=== PATIENT | male | born 1960 | race African-American/Black ===

== ENCOUNTER 2017-09-11 08:13 | Emergency (ER) | payer SELFPAY ==
[~2017-09-11] VITALS: Ht 170.2 cm; Wt 85.5 kg
[2017-09-11 08:18] VITALS: Ht 170.2 cm; Wt 85.5 kg
[2017-09-11] MEDS ORDERED: ASPIRIN 325 MG TAB PO STA (08:33)
[2017-09-11 08:58] LABS: BASOPHILS % 1.1 % (0.0-2.0); EOSINOPHILS # 0.1 10^3/ul (0.0-0.5); EOSINOPHILS % 2.2 % (0.0-7.0); HEMATOCRIT 43.2 % (42.0-52.0); LYMPHOCYTES # 1.9 10^3/ul (0.8-2.9); LYMPHOCYTES % 51.7 % (15.0-51.0); MEAN CORPUSCULAR HGB CONC 32.4 g/dl (32.0-37.0); MEAN CORPUSCULAR VOLUME 92.7 fl (82.0-101.0); MONOCYTE # 0.4 10^3/ul (0.3-0.9); MONOCYTES % 10.3 % (0.0-11.0); NEUTROPHIL # 1.2 10^3/ul (1.6-7.5); NEUTROPHILS % 34.4 % (39.0-77.0); PLATELET COUNT 266 10^3/UL (140-415); RED BLOOD COUNT 4.66 10^6/ul (4.70-6.10); RED CELL DISTRIBUTION WIDTH 12.7 % (11.5-14.5); WHITE BLOOD COUNT 3.6 10^3/ul (4.8-10.8)
[2017-09-11] MEDS ORDERED: NITROGLYCERIN (SL) 0.4 MG TAB SL PRN (09:00)
[2017-09-11 09:15] LABS: ANION GAP 12 (8-16); BLOOD UREA NITROGEN 16 mg/dl (7-20); CALCIUM 9.3 mg/dl (8.4-10.2); CARBON DIOXIDE 29 mmol/L (21-31); CHLORIDE 107 mmol/L (97-110); CREATININE 1.32 mg/dl (0.61-1.24); GLUCOSE 88 mg/dl (70-220); POTASSIUM 4.1 mmol/L (3.5-5.1); SODIUM 144 mmol/L (135-144)
[2017-09-11 09:29] LABS: TROPONIN-I < 0.012 ng/ml (0.00-0.12)
--- NOTE | 2017-09-11 09:46 | ERD ---
ER Documentation Chief Complaint Chief Complaint SHARP CHEST PAIN STARTED YESTERDAY HPI This is a 56-year-old male who presents to the emergency room for evaluation of chest pain. The patient states that he has had chest pain for 24 hours and has been constant in duration. He localizes the chest pain to the left portion of his chest and states that he thinks is because he ran out of his blood pressure medication. The patient states that for the past 2 weeks he is not taking his lisinopril 20 mg because of insurance dropping him. The patient denies any shortness of breath, diaphoresis, nausea, vomiting or any abdominal pain associated with his symptoms. He describes his pain as an achy pain with no aggravating or relieving factors at this time ROS All systems reviewed and are negative except as per history of present illness. Allergies Allergies: Coded Allergies: No Known Allergy (Unverified , 09/11/17) PMhx/Soc History of Surgery: Yes (Hernia repair) Anesthesia Reaction: No Hx Neurological Disorder: No Hx Respiratory Disorders: No Hx Cardiac Disorders: No Hx Psychiatric Problems: No Hx Miscellaneous Medical Probl: Yes (HTN, BPH, Chronic back pain.) Hx Alcohol Use: No Hx Substance Use: No Hx Tobacco Use: No Smoking Status: Never smoker Physical Exam Vitals Vital Signs Date Time Temp Pulse Resp B/P Pulse Ox O2 Delivery O2 Flow Rate FiO2 09/11/17 08:18 97.5 66 16 151/94 97 Physical Exam INITIAL VITAL SIGNS: Reviewed by me GENERAL: The patient is well developed and appropriate for usual state of health in no apparent distress HEENT: Pupils equal, round, and reactive to light. EOMI. There is no scleral icterus. NECK: C-spine is soft and supple, there is no meningismus. There is no cervical lymphadenopathy. LUNGS: Clear to auscultation bilaterally. There are no rales, wheezes or rhonchi. HEART: Regular rate and rhythm, no murmurs, clicks, rubs or gallops. ABDOMEN: Soft, non-tender, non-distended. There are bowel sounds in all four quadrants. No rebound or guarding. EXTREMITIES: There is no peripheral cyanosis or edema. No focal swelling or erythema. NEUROLOGICAL: The patient moves all four extremities with 5/5 strength. Cranial nerves II - XII are intact. Normal gait. Alert and oriented SKIN: There is no apparent rash or petechiae. HEME/LYMPHATIC: There is no evidence of excessive bruising or lymphedema. PSYCHIATRIC: The patient does not appear anxious or depressed. Result Diagram: 09/11/1745 09/11/17844 Results 24 hrs Laboratory Tests Test 09/11/17 08:45 White Blood Count 3.610^3/ul Red Blood Count 4.6610^6/ul Hemoglobin 14.0g/dl Hematocrit 43.2% Mean Corpuscular Volume 92.7fl Mean Corpuscular Hemoglobin 30.0pg Mean Corpuscular Hemoglobin Concent 32.4g/dl Red Cell Distribution Width 12.7% Platelet Count 52646^3/UL Mean Platelet Volume 9.0fl Neutrophils % 34.4% Lymphocytes % 51.7% Monocytes % 10.3% Eosinophils % 2.2% Basophils % 1.1% Nucleated Red Blood Cells % 0.0/100WBC Neutrophils # 1.210^3/ul Lymphocytes # 1.910^3/ul Monocytes # 0.410^3/ul Eosinophils # 0.110^3/ul Basophils # 0.010^3/ul Nucleated Red Blood Cells # 0.010^3/ul Sodium Level 144mmol/L Potassium Level 4.1mmol/L Chloride Level 107mmol/L Carbon Dioxide Level 29mmol/L Anion Gap 12 Blood Urea Nitrogen 16mg/dl Creatinine 1.32mg/dl Glucose Level 88mg/dl Calcium Level 9.3mg/dl Troponin I < 0.012ng/ml Current Medications Medications (Trade) Dose Ordered Sig/Kit Route PRN Reason Start Time Stop Time Status Last Admin Dose Admin Aspirin (Aspirin) 325 mg ONCE STAT PO 09/11/17 08:33 09/11/17 08:34 DC 09/11/17 09:21 Nitroglycerin (Nitroglycerin (Sl Tab) 0.4 Mg) 1 tab Q5M UP TO 3 DOSES PRN SL CHEST PAIN 09/11/17 09:00 09/11/17 09:21 Procedures/MDM EKG: Rate/Rhythm: [Normal Sinus Rhythm] QRS, ST, T-waves: [No changes consistent w/ acute ischemia] Impression: [No evidence of ischemia or arrhythmia] EKG: #2 Rate/Rhythm: [Normal Sinus Rhythm] QRS, ST, T-waves: [No changes consistent w/ acute ischemia] Impression: [No evidence of ischemia or arrhythmia] Chest X-ray 1V Interpreted by me: Soft Tissue: No acute abnormalities Bones: No acute abnormalities Mediastinum/Cardiac Silhouette/Lungs: [No acute abnormalities] This is a 56-year-old male who presents to the ER for evaluation of chest pain. The patient has had chest pain for the past 24 hours. Multiple EKGs do not show any ST elevations, there is no evolution of ST changes on his EKG. The patient did have lab work drawn in the emergency room including a troponin which is negative. His chest x-ray shows left lobe atelectasis however there is no signs of pneumonia. The patient is not hypoxic. I doubt pneumonia at this time, I doubt PE at this time given his normal heart rate and oxygen saturation of 100% on room air. The patient was given aspirin when I reevaluated him the patient stated that his chest pain is improved slightly. The patient denies any aggravating factors for his chest pain and states that the main reason he came to the ER was mostly to get his medications filled. This patient is on lisinopril 20 mg daily, and Flomax 0.4 mg daily. The patient will be discharged at this time with instructions to follow with his primary care physician as an outpatient to get a stress test. Patient verbalized understanding, is okay to plan of care. I advised him he can return to the ER any point for reevaluation of his chest pain were to worsen. I doubt ACS at this time given his normal troponin, and normal EKGs with no ST elevation or evolution of changes. Differential diagnoses entertained was broad with potential high acuity. Patient has been evaluated for acute myocardial infarction, unstable angina, aortic dissection, pulmonary embolism, other intrathoracic and cardiac concerns. Ultimately the patient's evaluation is nondiagnostic. Based on the patient's lack of risk factors, as well as the patient's clinical, laboratory, and imaging data, the patient appears to be low risk for these high risk causes of chest pain. Departure Diagnosis: Primary Impression: Chest pain Additional Impression: Renal insufficiency Condition: Stable YANNRENATE CARCAMO Sep 11, 2017 09:46
[2017-09-11] MEDS ORDERED: TAMS0.4C2 PO (09:47)
[2017-09-11] MEDS ORDERED: LISI20TA11 PO (09:47)
[2017-09-11] MEDS ORDERED: NAPR-260 PO (09:58)
[2017-09-11] MEDS ORDERED: ASPI81TA3 PO (09:58)
[2017-09-11 09:59] VITALS: BP 132/86; PULSE 60; RESP 18; TEMP 97.9
--- NOTE | 2017-09-11 15:12 | RADRPT ---
PROCEDURE: XR Chest. CLINICAL INDICATION: Shortness of breath. TECHNIQUE: Single frontal view. COMPARISON: None. FINDINGS: There is mild left basilar atelectasis. The lungs are otherwise clear. The heart size is normal. There is no pleural effusion. There is no pneumothorax. IMPRESSION: 1. Mild left basilar atelectasis. 2. Otherwise normal chest x-ray. RPTAT: QQ .Farzad Oscar MD, MD Date Time Electronically viewed and signed by .Farzad Oscar MD, on 09/11/2017 15:12 .R/
== END 2017-09-11 11:01 | disposition home or self-care (01) ==
LOC: E/R 08:13
DX: R07.9 Chest pain, unspecified (principal); N28.9 Disorder of kidney and ureter, unspecified; I10 Essential (primary) hypertension
CPT/HCPCS: 36415; 71010; 80048; 84484; 85025; 93005